=== PATIENT | male | born 1995 ===

== ENCOUNTER 2019-09-09 08:05 | Emergency (ER) | payer SELFPAY ==
[2019-09-09 08:12] VITALS: BP 140/76
--- NOTE | 2019-09-09 09:34 | Emergency Department Report ---
Chief Complaint: Headache Stated Complaint: FLU LIKE SYMPTOMS Time Seen by Provider: 09/09/19 09:15 - HPI History of Present Illness: Patient is a 24-year-old -Polish male with past medical history of seizures who is therapeutic on his seizure medications who is presenting with 2 days of mild cough which is nonproductive subjective fevers chills and body aches. Patient states bodyaches or 8 out of 10 in severity. The patient has a very mild headache without sinus tenderness. Patient denies nausea vomiting diarrhea and dizziness with standing chest pain or shortness of breath. - ROS Review of Systems: All other systems are reviewed and are negative - Exam Vital Signs: Vital Signs 09/09/19 08:11 Temperature 98.6 F Pulse Rate 102 H Respiratory 16 Rate Blood Pressure 140/76 O2 Sat by Pulse 100 Oximetry Physical Exam: Patient is alert and oriented 3 and not toxic appearance. Oropharynx is clear without erythema or exudate. There is no anterior cervical lymph nodes. Lungs clear to auscultation abdomen soft and nontender heart tones are normal. There is no rash. MSE screening note: Focused history and physical exam performed. Due to findings the following was ordered: ED Medical Decision Making - Medical Decision Making Patient appears to have mild influenza or flulike illness. Patient given recommendations [id number] medications and will be discharged to follow-up with community resources as needed. ED Disposition for MSE Clinical Impression: Flu-like symptoms Disposition: MED SCREENING EXAM-LEFT Is pt being admited?: No Does the pt Need Aspirin: No Condition: Stable Instructions: Influenza (ED) Additional Instructions: Please use Flonase daily. Also try Mucinex cold and flu or TheraFlu for flulike symptoms. Forms: Work/School Release Form(ED) Time of Disposition: 09:30
== END 2019-09-09 09:30 | disposition left against medical advice (07) ==
LOC: ED 08:05
DX: J11.1 Influenza due to unidentified influenza virus with other respiratory manifestations (principal)
CPT/HCPCS: 99281

== ENCOUNTER 2020-07-21 12:24 | Emergency (ER) | payer SELFPAY ==
[2020-07-21] MEDS ORDERED: levETIRAcetam 1000 MG/NS 0.75% 1,000 MG/100 ML BAG IV ONE (12:39)
[2020-07-21] MEDS ORDERED: SODIUM CHLORIDE 0.9% 1000 ML 1,000 ML IV ONE (12:39)
--- NOTE | 2020-07-21 12:41 | Emergency Department Report ---
HPI - General Chief Complaint: Syncope Time Seen by Provider: 07/21/20 12:29 - HPI HPI: This is a 25-year-old male who presents to the emergency department via EMS from work after the patient passed out and was found on the ground. EMS was called by a coworker and EMS found the patient awake but confused, seeming postictal. There was no one who witnessed a seizure but the patient does have a history of a seizure disorder over the past 5 years. However the patient has not been on any medication for about 1 year. He was previously on Keppra 1000 mg twice daily. He denies any other past medical history. At the time of my examination the patient is awake, alert, oriented and has no complaints. He does not have a primary care physician. No recent travel or sick contacts at home. He denies any headache, neck or back pain, vision change, slurred speech, numbness or paresthesias, or any neurological deficits. He did not take anything, nor receive anything, for his symptoms prior to presentation. ED Past Medical Hx - Past Medical History Hx Seizures: Yes - Social History Smoking Status: Never Smoker Substance Use Type: None - Medications Home Medications: Home Medications Medication Instructions Recorded Confirmed Last Taken Type levETIRAcetam [Keppra TAB] 500 mg PO BID #60 tablet 07/21/20 Unknown Rx ED Review of Systems ROS: Stated complaint: SZ Other details as noted in HPI Comment: All other systems reviewed and negative Constitutional: denies: chills, fever Eyes: denies: eye pain, vision change ENT: denies: ear pain, throat pain Respiratory: denies: cough, shortness of breath Cardiovascular: syncope. denies: chest pain, palpitations Gastrointestinal: denies: abdominal pain, vomiting Genitourinary: denies: dysuria, discharge Musculoskeletal: denies: back pain, arthralgia Skin: denies: rash, lesions Neurological: denies: headache, numbness, paresthesias Physical Exam - Physical Exam Physical Exam: GENERAL: The patient is well-developed well-nourished. HENT: Normocephalic. Atraumatic. Patient has moist mucous membranes. EYES: Extraocular motions are intact. NECK: Supple. Trachea is midline. CHEST/LUNGS: Clear to auscultation. There is no respiratory distress noted. HEART/CARDIOVASCULAR: Regular. There is no tachycardia. There is no murmur. ABDOMEN: Abdomen is soft, nontender. Patient has normal bowel sounds. SKIN: Skin is warm and dry. NEURO: The patient is awake, alert, and oriented. The patient is cooperative. The patient has no focal neurologic deficits. Normal speech. Cranial nerves II through XII grossly intact. MUSCULOSKELETAL: There is no tenderness or deformity. There is no limitation range of motion. ED Course - Reevaluation(s) Reevaluation #1: 07/21/20 17:15 Lab Results 07/21/20 07/21/20 07/21/20 Range/Units 12:48 12:48 12:48 WBC 7.7 (4.5-11.0) K/mm3 RBC 4.55 (3.65-5.03) M/mm3 Hgb 14.3 (11.8-15.2) gm/dl Hct 42.8 (35.5-45.6) % MCV 94 (84-94) fl MCH 31 (28-32) pg MCHC 33 (32-34) % RDW 13.3 (13.2-15.2) % Plt Count 179 (140-440) K/mm3 Lymph % (Auto) 25.4 (13.4-35.0) % [place] % (Auto) 8.3 H (0.0-7.3) % Eos % (Auto) 0.4 (0.0-4.3) % Baso % (Auto) 0.3 (0.0-1.8) % Lymph # (Auto) 1.9 (1.2-5.4) K/mm3 [place] # (Auto) 0.6 (0.0-0.8) K/mm3 Eos # (Auto) 0.0 (0.0-0.4) K/mm3 Baso # (Auto) 0.0 (0.0-0.1) K/mm3 Seg Neutrophils % 65.6 (40.0-70.0) % Seg Neutrophils # 5.0 (1.8-7.7) K/mm3 Sodium 138 (137-145) mmol/L Potassium 4.2 (3.6-5.0) mmol/L Chloride 101.5 (98-107) mmol/L Carbon Dioxide 32 H (22-30) mmol/L Anion Gap 9 mmol/L BUN 8 L (9-20) mg/dL Creatinine 0.9 (0.8-1.3) mg/dL Estimated GFR > 60 ml/min BUN/Creatinine Ratio 9 % Glucose 85 (75-100) mg/dL Calcium 9.0 (8.4-10.2) mg/dL Total Bilirubin 0.40 (0.1-1.2) mg/dL AST 17 (5-40) units/L ALT 9 (7-56) units/L Alkaline Phosphatase 68 (35-129) units/L Total Creatine Kinase 193 H (55-170) units/L Total Protein 6.9 (6.3-8.2) g/dL Albumin 4.2 (3.9-5) g/dL Albumin/Globulin Ratio 1.6 % TSH 1.710 (0.270-4.200) mlU/mL Plasma/Serum Alcohol (0-0.07) % 07/21/20 Range/Units 12:48 WBC (4.5-11.0) K/mm3 RBC (3.65-5.03) M/mm3 Hgb (11.8-15.2) gm/dl Hct (35.5-45.6) % MCV (84-94) fl MCH (28-32) pg MCHC (32-34) % RDW (13.2-15.2) % Plt Count (140-440) K/mm3 Lymph % (Auto) (13.4-35.0) % [place] % (Auto) (0.0-7.3) % Eos % (Auto) (0.0-4.3) % Baso % (Auto) (0.0-1.8) % Lymph # (Auto) (1.2-5.4) K/mm3 [place] # (Auto) (0.0-0.8) K/mm3 Eos # (Auto) (0.0-0.4) K/mm3 Baso # (Auto) (0.0-0.1) K/mm3 Seg Neutrophils % (40.0-70.0) % Seg Neutrophils # (1.8-7.7) K/mm3 Sodium (137-145) mmol/L Potassium (3.6-5.0) mmol/L Chloride (98-107) mmol/L Carbon Dioxide (22-30) mmol/L Anion Gap mmol/L BUN (9-20) mg/dL Creatinine (0.8-1.3) mg/dL Estimated GFR ml/min BUN/Creatinine Ratio % Glucose (75-100) mg/dL Calcium (8.4-10.2) mg/dL Total Bilirubin (0.1-1.2) mg/dL AST (5-40) units/L ALT (7-56) units/L Alkaline Phosphatase (35-129) units/L Total Creatine Kinase (55-170) units/L Total Protein (6.3-8.2) g/dL Albumin (3.9-5) g/dL Albumin/Globulin Ratio % TSH (0.270-4.200) mlU/mL Plasma/Serum Alcohol < 0.01 (0-0.07) % ED Medical Decision Making - Lab Data Result diagrams: 07/21/20 12:48 07/21/20 12:48 - EKG Data -: EKG Interpreted by Pr EKG shows normal: sinus rhythm (Sinus arrhythmia), axis, intervals, QRS complexes, ST-T waves Rate: bradycardia (57 bpm) - EKG Data When compared to previous EKG there are: previous EKG unavailable Interpretation: normal EKG (Sinus arrhythmia at 57 bpm) - Medical Decision Making This patient presents to the emergency department after he was found unresponsive at work. There was no seizure-like activity seen/witnessed, but the patient does have a seizure history. Since being in the emergency department, the patient has been awake, alert, oriented, AAO x3. On examination he does not have any focal, motor or sensory deficits and his cranial nerves are intact. Patient was loaded with 1 g of Keppra. EKG did not have any morphology consistent with ST elevation myocardial infarction or any dysrhythmia. Patient 's labs have been unremarkable including CBC, metabolic panel, TSH, CK and blood alcohol level. He was reevaluated multiple times over close to 3 hours without any further episodes of passing out or any seizure-like activity. The patient appears safe for discharge home at this time. He has been given referrals for primary care and neurology. He will be restarted on Keppra at 500 mg twice daily. He has been instructed to return to the closest emergency department with any further episodes of passing out, seizure-like activity, or with any acute distress. Critical Care Time: No Critical care attestation.: If time is entered above; I have spent that time in minutes in the direct care of this critically ill patient, excluding procedure time. ED Disposition Clinical Impression: Seizure Syncope Qualifiers: Syncope type: unspecified Qualified Code(s): R55 - Syncope and collapse Disposition: DC-01 TO HOME OR SELFCARE Is pt being admited?: No Condition: Stable Instructions: Seizure, Adult, Syncope, Syncope (ED) Additional Instructions: Please follow-up with a primary care physician in the next few days. I am giving you a referral for a local neurologist, Dr. Huffman, to follow-up regarding your seizure history. I am restarting you on seizure medication, Keppra, at 500 mg twice daily. As is the potential that you had a seizure, you are not allowed to drive a car or motorcycle, or operate heavy machinery, for at least 6 months, or until cleared by a neurologist. Please avoid any alcohol, illicit drugs, large amounts of caffeine, as these can decrease your seizure threshold. Return to the emergency department with any worsening of your symptoms, new or concerning symptoms not addressed during this current emergency department visit, or with any acute distress. Prescriptions: levETIRAcetam [Keppra TAB] 500 mg PO BID #60 tablet Referrals: LIV FRAIRE MD [Primary Care Provider] - 3-5 Days NIGEL HUFFMAN MD [Referring] - 3-5 Days [facility] [Provider Group] - 3-5 Days Time of Disposition: 14:53
[2020-07-21 13:16] LABS: Basophils % (Auto) 0.3 % (0.0-1.8); Eosinophils % (Auto) 0.4 % (0.0-4.3); Hematocrit 42.8 % (35.5-45.6); Hemoglobin 14.3 gm/dl (11.8-15.2); Lymphocytes # (Auto) 1.9 K/mm3 (1.2-5.4); Lymphocytes % (Auto) 25.4 % (13.4-35.0); Mean Corpuscular HGB Conc 33 % (32-34); Mean Corpuscular Volume 94 fl (84-94); Monocytes # (Auto) 0.6 K/mm3 (0.0-0.8); Monocytes % (Auto) 8.3 % (0.0-7.3); Platelet Count 179 K/mm3 (140-440); Red Blood Count 4.55 M/mm3 (3.65-5.03); Red Cell Distribution Width 13.3 % (13.2-15.2)
[2020-07-21 13:39] LABS: Alanine Aminotransferase 9 units/L (7-56); Albumin 4.2 g/dL (3.9-5); BUN/Creatinine Ratio 9; Blood Urea Nitrogen 8 mg/dL (9-20); Hemolysis Index 6
[2020-07-21 13:40] VITALS: BP 113/68
== END 2020-07-21 14:59 | disposition home or self-care (01) ==
LOC: ED 12:24
DX: G40.909 Epilepsy, unspecified, not intractable, without status epilepticus (principal); Z79.899 Other long term (current) drug therapy
CPT/HCPCS: 36415; 80053; 82550; 84443; 85025; 96374; 99284; J1953; J7030; 80320; 93005; G0480

== ENCOUNTER 2020-09-10 10:16 | Emergency (ER) | payer SELFPAY ==
[2020-09-10 10:38] VITALS: BP 124/59
--- NOTE | 2020-09-10 10:44 | Emergency Department Report ---
ED Recheck HPI - General Chief Complaint: Recheck/Abnormal Lab/Rx Stated Complaint: SEIZURE Time Seen by Provider: 09/10/20 10:41 Source: patient Mode of arrival: Ambulatory Limitations: No Limitations - History of Present Illness Initial Comments: This is a 25-year-old male nontoxic, well nourished in appearance, no acute signs of distress presents to the ED for medication refill for his seizures. Patient stated that he takes Keppra 500 mg twice a day. Patient otherwise denies any symptoms or complaints. Denies any recent seizures, chest pain, s hortness of breath, fever, chills, nausea, vomiting, headache or stiff neck. Patient denies any allergies. MD Complaint: medication refill request Returns Today for: request for prescription Symptoms Since Prior Visit: no new symptoms Associated Symptoms: none. denies: fever, chills, chest pain, shortness of breath, rash, malaise, nasuea, abdominal pain - Related Data Previous Rx's Medication Instructions Recorded Last Taken Type levETIRAcetam [Keppra TAB] 500 mg PO BID #60 tablet 07/21/20 Unknown Rx levETIRAcetam [Keppra TAB] 500 mg PO BID #60 tablet 09/10/20 Unknown Rx Allergies Allergy/AdvReac Type Severity Reaction Status Date / Time No Known Allergies Allergy Verified 09/10/20 10:36 ED Review of Systems ROS: Stated complaint: SEIZURE Other details as noted in HPI Comment: All other systems reviewed and negative Constitutional: denies: chills, fever Eyes: denies: eye pain, eye discharge, vision change ENT: denies: ear pain, throat pain Respiratory: denies: cough, shortness of breath, wheezing Cardiovascular: denies: chest pain, palpitations Endocrine: no symptoms reported Gastrointestinal: denies: abdominal pain, nausea, diarrhea Genitourinary: denies: urgency, dysuria Musculoskeletal: denies: back pain, joint swelling, arthralgia Skin: denies: rash, lesions Neurological: denies: headache, weakness, paresthesias Psychiatric: denies: anxiety, depression Hematological/Lymphatic: denies: easy bleeding, easy bruising ED Past Medical Hx - Past Medical History Hx Seizures: Yes - Social History Smoking Status: Never Smoker Substance Use Type: None - Medications Home Medications: Home Medications Medication Instructions Recorded Confirmed Last Taken Type levETIRAcetam [Keppra TAB] 500 mg PO BID #60 tablet 07/21/20 Unknown Rx levETIRAcetam [Keppra TAB] 500 mg PO BID #60 tablet 09/10/20 Unknown Rx ED Physical Exam - General Limitations: No Limitations General appearance: alert, in no apparent distress - Head Head exam: Present: atraumatic, normocephalic - Eye Eye exam: Present: normal appearance - Neck Neck exam: Present: full ROM - Respiratory Respiratory exam: Absent: respiratory distress - Cardiovascular Cardiovascular Exam: Present: regular rate - Extremities Exam Extremities exam: Present: full ROM - Back Exam Back exam: Present: full ROM - Neurological Exam Neurological exam: Present: alert, oriented X3, normal gait - Psychiatric Psychiatric exam: Present: normal affect, normal mood - Skin Skin exam: Present: warm, dry, intact, normal color. Absent: rash ED Course Vital Signs 09/10/20 10:37 Temperature 98.1 F Pulse Rate 57 L Respiratory 20 Rate Blood Pressure 124/59 O2 Sat by Pulse 100 Oximetry - Reevaluation(s) Reevaluation #1: 09/10/20 10:46 Patient is speaking in full sentences with no signs of distress noted. ED Recheck MDM - Medical Decision Making Patient does not have a primary care doctor as he stated so I will refill patient's medication and will refer patient to a primary care doctor. Patient was instructed to follow-up with a primary care doctor in 3-5 days or if symptoms worsen and continue return to emergency room as soon as possible. At time of discharge, the patient does not seem toxic or ill in appearance. No acute signs of distress noted. Patient agrees to discharge treatment plan of care. No further questions noted by the patient. Critical care attestation.: If time is entered above; I have spent that time in minutes in the direct care of this critically ill patient, excluding procedure time. ED Disposition Clinical Impression: Medication refill Disposition: DC-01 TO HOME OR SELFCARE Is pt being admited?: No Does the pt Need Aspirin: No Condition: Stable Instructions: Levetiracetam tablets Additional Instructions: Follow-up with a primary care doctor in 3-5 days or if symptoms worsen and continue return to emergency room as soon as possible. Prescriptions: levETIRAcetam [Keppra TAB] 500 mg PO BID #60 tablet Referrals: PRIMARY CARE, [Referring] - 3-5 Days VERN CROWDER MD [Staff Physician] - 3-5 Days Time of Disposition: 10:47
== END 2020-09-10 11:31 | disposition home or self-care (01) ==
LOC: ED 10:16
DX: Z76.0 Encounter for issue of repeat prescription (principal); Z79.899 Other long term (current) drug therapy; Z86.69 Personal history of other diseases of the nervous system and sense organs
CPT/HCPCS: 99282